=== PATIENT | male | born 1955 | race Caucasian/White ===

== ENCOUNTER 2019-09-23 18:26 | Emergency (ER) | payer MEDICARE, BC ==
[~2019-09-23] VITALS: Ht 172.7 cm; Wt 73.0 kg
[~2019-09-23 18:26] MED LIST: ANT25 PO; ECO81 PO; MEDDP PO; ZOCOR40 MG PO
[2019-09-23 18:41] VITALS: Ht 172.7 cm; Wt 73.0 kg
[2019-09-23 19:24] LABS: BASOPHIL % 0.8 % (0-2); PLATELET COUNT 279 x10^3mcL (130-400); RED CELL DISTRIBUTION WIDTH 13.5 % (11.5-14.5)
[2019-09-23 19:36] LABS: CALCIUM 8.4 mg/dL (8.5-10.1); CARBON DIOXIDE 24.7 mmol/L (21-32); CHLORIDE SERUM 104 mmol/L (98-107); GFR1 > 60 mL/min; GLUCOSE SERUM 98 mg/dL (74-106); SODIUM SERUM 141 mmol/L (136-145)
[2019-09-24 02:21] VITALS: BP 133/85
== END 2019-09-24 02:25 | disposition home or self-care (01) ==
LOC: ED 18:26
PROVIDERS: Emergency Medicine
DX: S71.111A Laceration without foreign body, right thigh, initial encounter (principal); Y93.89 Activity, other specified; Y92.89 Other specified places as the place of occurrence of the external cause; Y99.8 Other external cause status
CPT/HCPCS: 90715; J0690; J2001; J3010; Q9967